=== PATIENT | female | born 1935 | race Caucasian/White ===

== ENCOUNTER 2017-09-07 09:43 | Inpatient (IN) | payer MEDICARE, MEDICAID, OTHER ==
[~2017-09-07] VITALS: Ht 161.3 cm; Wt 72.7 kg
[~2017-09-07 09:43] MED LIST: ASPI-611 PO; CARB1TAB23 PO; CELE-54 PO; CETI-1 PO; DILT180C95 PO; DIPH-186 PO; DONE10TA44 PO; DULO-31 PO; ESZO3TAB39 PO; LACT1CAP26 PO; METF500T7 PO; NITR0.4T51 SL; NORCO10T PO; POLY17PO2 PO; ROSU20TA PO; TEMA30CA PO
[2017-09-07 10:44] LABS: BASOPHILS % (AUTO) 0.6 % (0-1); EOSINOPHILS # (AUTO) 0.2 X10'3 (0-0.9); EOSINOPHILS % (AUTO) 3.9 % (0-6); HEMATOCRIT 31.9 % (35.0-45.0); HEMOGLOBIN 10.7 g/dl (12.0-16.0); LYMPHOCYTES # (AUTO) 1.6 X10'3 (1.1-4.8); LYMPHOCYTES % (AUTO) 26.8 % (21-51); MEAN CORPUSCULAR HEMOGLOBIN 29.2 PG (27.0-31.0); MEAN CORPUSCULAR HGB CONC 33.7 % (33.0-36.5); MEAN CORPUSCULAR VOLUME 86.7 FL (78-98); MEAN PLATELET VOLUME 8.7 FL (7.4-10.4); MONOCYTES # (AUTO) 0.5 X10'3 (0-0.9); MONOCYTES % (AUTO) 7.9 % (2-12); NEUTROPHILS # (AUTO) 3.7 X10'3 (1.8-7.7); NEUTROPHILS % (AUTO) 60.8 % (42-75); PLATELET COUNT 179 X10'3 (140-440); RED BLOOD COUNT 3.67 X10'6 (4.20-5.60); RED CELL DISTRIBUTION WIDTH 18.4 % (11.5-14.5); WHITE BLOOD COUNT 6.1 X10'3 (4.5-11.0)
[2017-09-07 11:09] LABS: CLARITY,URINE Clear (Clear); COLOR,URINE Yellow (Yellow); GLUCOSE, URINE Negative (Neg); KETONES,URINE Negative (Neg); LEUKOCYTE ESTERASE ,URINE Negative (Neg); NITRITES, URINE Negative (Neg); OCCULT BLOOD,URINE Negative (Neg); PH,URINE 5.5 (4.8-8.0); PROTEIN,URINE Negative (Neg)
[2017-09-07 11:10] LABS: UA COLLECTION TYPE CLN CATCH MIDSTREAM
[2017-09-07 11:23] LABS: ACETAMINOPHEN < 2.0 UG/ML (10-30); ALANINE AMINOTRANSFERASE 12 U/L (12-78); ALBUMIN/GLOBULIN RATIO 0.8 (1.1-1.5); ALKALINE PHOSPHATASE 97 IU/L (46-116); ANION GAP 8 (8-16); ASPARTATE AMINO TRANSFERASE 17 U/L (10-37); BILIRUBIN,TOTAL 0.3 MG/DL (0.1-1.0); BLOOD UREA NITROGEN 35 MG/DL (7-18); BUN/CREATININE RATIO 31.8 (6.6-38.0); CALCIUM 8.5 MG/DL (8.5-10.1); CHLORIDE 109 MMOL/L (99-107); ETHANOL < 0.010 GM/DL (0.0-0.010); GLUCOSE 127 MG/DL (70-104); MAGNESIUM 1.9 MG/DL (1.5-2.4); PHOSPHORUS 3.8 MG/DL (2.3-4.5); POTASSIUM 3.9 MMOL/L (3.5-5.1); SODIUM 141 MMOL/L (135-145); TOTAL CARBON DIOXIDE 24.5 MMOL/L (24-32); TOTAL PROTEIN 6.8 G/DL (6.4-8.2); eGFR 48 ML/MIN
[2017-09-07 11:25] LABS: URINE AMPHETAMINE SCREEN NEGATIVE (Neg); URINE BARBITUATE SCREEN NEGATIVE (Neg); URINE BENZODIAZEPINES SCREEN POSITIVE (Neg); URINE CANNABINOID SCREEN NEGATIVE (Neg); URINE COCAINE SCREEN NEGATIVE (Neg); URINE METHADONE SCREEN NEGATIVE (Neg); URINE OPIATE SCREEN POSITIVE (Neg); URINE PHENCYCLIDINE SCREEN NEGATIVE (Neg)
[2017-09-07 13:17] LABS: CREATINE KINASE 59 U/L (26-192)
[2017-09-07] MEDS ORDERED: LORazepam 2 mg/ml vial IV ONE (15:05)
[2017-09-07] MEDS ORDERED: acetaminophen 325mg tablet PO STA (16:10)
[2017-09-07] MEDS ORDERED: carbidoba-levodopa 25-100mg tablet PO STA (16:11)
[2017-09-07] MEDS ORDERED: metoprolol tartrate 1mg/ml inj IV ONE (20:05)
[2017-09-07] MEDS ORDERED: hydrALAZINE 20mg/ml inj. IV ONE (20:05)
[2017-09-07] MEDS ORDERED: normal saline 1000ml 1,000 ML IV ONE (20:25)
[2017-09-07] MEDS ORDERED: temazepam 15mg capsule PO PRN (21:00)
[2017-09-07] MEDS ORDERED: normal saline 1000ml 1,000 ML IV SCH (21:14)
[2017-09-07] MEDS ORDERED: HYDROcodone/acetaminophen 5mg/325mg tablet PO PRN (21:15)
[2017-09-07] MEDS ORDERED: ondansetron/PF 4mg/2ml inj IV PRN (21:15)
[2017-09-07] MEDS ORDERED: metoclopramide 5 mg/ml inj IV PRN (21:15)
[2017-09-07] MEDS ORDERED: dextrose 50%-water 50ml dispensing syringe IV PRN ×2 (21:15)
[2017-09-07] MEDS ORDERED: magnesium hydroxide 30ml (MOM) UD suspension PO PRN (21:15)
[2017-09-07] MEDS ORDERED: bisacodyl 10mg suppository rectal RC PRN (21:15)
[2017-09-07] MEDS ORDERED: mag hydrox/Alum hydrox/simeth 30ml oral suspension PO PRN (21:15)
[2017-09-07] MEDS ORDERED: MESSAGE TO PHARMACY PO ONE (21:15)
[2017-09-07] MEDS ORDERED: glucagon, human recombinant 1mg kit SUBCUT PRN (21:15)
[2017-09-07] MEDS ORDERED: insulin Lispro (HumaLOG) vial - multi-dose SQ SCH (21:15)
[2017-09-07] MEDS ORDERED: acetaminophen 650mg rectal suppository RC PRN (21:15)
[2017-09-07] MEDS ORDERED: HYDROmorphone 1 mg/ml syringe IV PRN ×2 (21:15)
[2017-09-07] MEDS ORDERED: acetaminophen 325mg tablet PO PRN ×2 (21:15)
[2017-09-07] MEDS ORDERED: dextrose ORAL solution 15 GM/59 ML bottle PO PRN ×2 (21:15)
[2017-09-07] MEDS ORDERED: morphine 2 MG/ML inj. syringe IV PRN ×2 (21:15)
[2017-09-07] MEDS ORDERED: diphenhydrAMINE 25mg capsule PO PRN (21:15)
[2017-09-07] MEDS ORDERED: HYDROcodone/acetaminophen 10/325mg tab PO PRN (21:15)
[2017-09-07] MEDS ORDERED: diphenhydrAMINE 50 mg/ml inj IV PRN (21:15)
[2017-09-07] MEDS ORDERED: morphine 5 MG/ML injection IV PRN ×2 (21:30)
[2017-09-07 21:50] LABS: HEMOGLOBIN A1C 5.9 % (4.5-6.2)
[2017-09-07 21:59] LABS: LIPASE 265 U/L (73-393)
[2017-09-07] MEDS: carbidoba-levodopa 25-100mg tablet PO SCH (23:36)
[2017-09-07 23:42] VITALS: BP 161/106
[2017-09-08 06:00] VITALS: BP 169/72
[2017-09-08 07:15] LABS: BASOPHILS % (AUTO) 0.4 % (0-1); EOSINOPHILS # (AUTO) 0.2 X10'3 (0-0.9); EOSINOPHILS % (AUTO) 4.1 % (0-6); HEMATOCRIT 31.8 % (35.0-45.0); HEMOGLOBIN 10.9 g/dl (12.0-16.0); LYMPHOCYTES # (AUTO) 1.5 X10'3 (1.1-4.8); LYMPHOCYTES % (AUTO) 27.6 % (21-51); MEAN CORPUSCULAR HEMOGLOBIN 29.1 PG (27.0-31.0); MEAN CORPUSCULAR HGB CONC 34.1 % (33.0-36.5); MEAN CORPUSCULAR VOLUME 85.4 FL (78-98); MEAN PLATELET VOLUME 8.9 FL (7.4-10.4); MONOCYTES # (AUTO) 0.4 X10'3 (0-0.9); MONOCYTES % (AUTO) 6.8 % (2-12); NEUTROPHILS # (AUTO) 3.2 X10'3 (1.8-7.7); NEUTROPHILS % (AUTO) 61.1 % (42-75); PLATELET COUNT 189 X10'3 (140-440); RED BLOOD COUNT 3.73 X10'6 (4.20-5.60); RED CELL DISTRIBUTION WIDTH 18.5 % (11.5-14.5); WHITE BLOOD COUNT 5.3 X10'3 (4.5-11.0)
[2017-09-08 07:27] LABS: ALANINE AMINOTRANSFERASE 15 U/L (12-78); ALBUMIN 2.8 G/DL (3.4-5.0); ALBUMIN/GLOBULIN RATIO 0.8 (1.1-1.5); ALKALINE PHOSPHATASE 100 IU/L (46-116); ANION GAP 9 (8-16); ASPARTATE AMINO TRANSFERASE 21 U/L (10-37); BILIRUBIN,TOTAL 0.2 MG/DL (0.1-1.0); BLOOD UREA NITROGEN 27 MG/DL (7-18); CALCIUM 8.6 MG/DL (8.5-10.1); CHLORIDE 112 MMOL/L (99-107); GLUCOSE 136 MG/DL (70-104); SODIUM 145 MMOL/L (135-145); TOTAL CARBON DIOXIDE 24.1 MMOL/L (24-32); TOTAL PROTEIN 6.4 G/DL (6.4-8.2); eGFR 60 ML/MIN
[2017-09-08] MEDS ORDERED: diltiazem CD 180mg cap (once-daily) PO SCH (08:00)
[2017-09-08] MEDS ORDERED: duloxetine 30mg CAPSULE.DR PO SCH (08:00)
[2017-09-08] MEDS ORDERED: aspirin 81mg tablet.DR PO SCH (08:00)
[2017-09-08] MEDS ORDERED: docusate sod 100mg capsule PO SCH (08:00)
[2017-09-08] MEDS ORDERED: heparin, porcine 5000 units/ml vial SQ SCH (08:00)
[2017-09-08] MEDS ORDERED: non-formulary drug (Aspirin (Aspir 81) 1 TABLET) PO SCH (08:00)
[2017-09-08] MEDS: carbidoba-levodopa 25-100mg tablet PO SCH (09:37)
[2017-09-08] MEDS ORDERED: FLU VACC QS2017-18 36MOS UP/PF 60 MCG/0.5 ML SYRINGE IMVAC ONE (10:00)
[2017-09-08] MEDS ORDERED: pneumococcal 23-VAL P-sac vacc 25 mcg/0.5ml vial IMVAC ONE (10:00)
[2017-09-08] MEDS ORDERED: zolpidem 5mg tablet PO SCH (21:00)
[2017-09-08] MEDS ORDERED: non-formulary drug (Rosuvastatin Calcium* (Crestor*) 20 MG) PO SCH (21:00)
[2017-09-08] MEDS ORDERED: insulin glargine (Lantus) pen - multi-dose SQ SCH (21:00)
[2017-09-08] MEDS ORDERED: atorvastatin 20mg tablet PO SCH (21:00)
[2017-09-08] MEDS ORDERED: non-formulary drug (Eszopiclone 1 TAB) PO SCH (21:00)
== END 2017-09-08 13:50 | disposition home health service (06) | DRG 917 ==
LOC: ER 09:44 → ORTHO 4S 21:14
PROVIDERS: ADMIT Family Medicine; ATTEND Internal Medicine
DX: T50.901A Poisoning by unspecified drugs, medicaments and biological substances, accidental (unintentional), initial encounter (principal); G92 Toxic encephalopathy; N17.9 Acute kidney failure, unspecified; I16.0 Hypertensive urgency; E11.65 Type 2 diabetes mellitus with hyperglycemia; F03.90 Unspecified dementia, unspecified severity, without behavioral disturbance, psychotic disturbance, mood disturbance, and anxiety; I25.10 Atherosclerotic heart disease of native coronary artery without angina pectoris; F19.10 Other psychoactive substance abuse, uncomplicated; I10 Essential (primary) hypertension; Z95.0 Presence of cardiac pacemaker; Z88.8 Allergy status to other drugs, medicaments and biological substances; Z79.82 Long term (current) use of aspirin; Z79.84 Long term (current) use of oral hypoglycemic drugs; Z79.899 Other long term (current) drug therapy; Z85.41 Personal history of malignant neoplasm of cervix uteri; Z86.73 Personal history of transient ischemic attack (TIA), and cerebral infarction without residual deficits; Z82.49 Family history of ischemic heart disease and other diseases of the circulatory system; Z82.5 Family history of asthma and other chronic lower respiratory diseases; Y92.89 Other specified places as the place of occurrence of the external cause
CPT/HCPCS: 36415; 70450; 71045; 80053; 80305; 80320; 80329; 81003; 82140; 82550; 82553; 82948; 83036; 83690; 83735; 83880; 84100; 84439; 84443; 84484; 85025; 87070; 93005; J0360; J1644; J1815; J2060; J3490; J7030

== ENCOUNTER 2018-01-04 06:00 | Day surgery (SDC) | payer MEDICARE, MEDICAID, OTHER ==
[2017-12-30 13:59] LABS: CLARITY,URINE CLOUDY (Clear); COLOR,URINE YELLOW (Yellow); GLUCOSE, URINE NEGATIVE (Neg); KETONES,URINE 15 mg/dl (Neg); LEUKOCYTE ESTERASE ,URINE SMALL (Neg); NITRITES, URINE POSITIVE (Neg); OCCULT BLOOD,URINE NEGATIVE (Neg); PH,URINE 5.5 (4.8-8.0); PROTEIN,URINE 30 mg/dl (Neg)
[2017-12-30 13:59] LABS: BASOPHILS % (AUTO) 0.3 % (0-1); EOSINOPHILS # (AUTO) 0.1 X10'3 (0-0.9); EOSINOPHILS % (AUTO) 1.4 % (0-6); LYMPHOCYTES % (AUTO) 29.1 % (21-51); MEAN CORPUSCULAR HGB CONC 33.5 % (33.0-36.5); MEAN CORPUSCULAR VOLUME 86.4 FL (78-98); MEAN PLATELET VOLUME 9.6 FL (7.4-10.4); MONOCYTES # (AUTO) 0.3 X10'3 (0-0.9); MONOCYTES % (AUTO) 4.6 % (2-12); NEUTROPHILS # (AUTO) 4.5 X10'3 (1.8-7.7); NEUTROPHILS % (AUTO) 64.6 % (42-75); PRE OP HEMATOCRIT 40.3 % (35.0-45.0); PRE OP HEMOGLOBIN 13.5 g/dL (12.0-16.0); PRE OP PLATELET COUNT 195 X10'3 (140-440); RED BLOOD COUNT 4.66 X10'6 (4.20-5.60); RED CELL DISTRIBUTION WIDTH 15.5 % (11.5-14.5)
[2017-12-30 14:05] LABS: UA COLLECTION TYPE CLN CATCH MIDSTREAM
[2017-12-30 14:06] LABS: SQUAMOUS EPITHELIAL CELL,UR MANY /LPF (FEW)
[2017-12-30 14:07] LABS: BACTERIA,URINE 2+ /HPF (Neg); RBC,URINE 0-2 /HPF (0-2); WBC,URINE 30-50 /HPF (0-4); YEAST FEW /HPF (NEGATIVE)
[2017-12-30 14:14] LABS: ALBUMIN 3.5 G/DL (3.4-5.0); ALBUMIN/GLOBULIN RATIO 0.9 (1.1-1.5); ALKALINE PHOSPHATASE 114 IU/L (46-116); BLOOD UREA NITROGEN 19 MG/DL (7-18); BUN/CREATININE RATIO 17.9 (6.6-38.0); CALCIUM 8.9 MG/DL (8.5-10.1); CHLORIDE 105 MMOL/L (99-107); CREATININE 1.06 MG/DL (0.40-0.90); PRE OP ALT 8 U/L (30-65); PRE OP ANION GAP 10 (8-16); PRE OP AST 17 U/L (10-37); PRE OP BILIRUB, TOTAL 0.6 MG/DL (0.0-1.0); PRE OP GLUCOSE 90 MG/DL (70-104); PRE OP POTASSIUM 3.7 MMOL/L (3.4-5.1); PRE OP SODIUM 139 MMOL/L (135-145); TOTAL CARBON DIOXIDE 23.9 MMOL/L (24-32); TOTAL PROTEIN 7.5 G/DL (6.4-8.2); eGFR 50 ML/MIN
[~2018-01-04] VITALS: Ht 162.6 cm; Wt 73.5 kg
[2018-01-04] VITALS (23 sets, daily range): BP systolic 116–148; BP diastolic 43–94
[~2018-01-04 06:00] MED LIST changes: +CARB1TAB44 PO; +Cefazolin 2GM/100ML NS IVPB IV ONE; +DIPH25CA46 PO; +GABA-530 PO; -LACT1CAP26 PO; +NITR100C PO; -POLY17PO2 PO; +famotidine 20mg tablet PO ONE; +ringers solution, lacted 1,000 ML IV SCH
[2018-01-04] MEDS ORDERED: LIDOcaine 1% (10mg/ml) 2ml vial ONE (06:01)
[2018-01-04] MEDS ORDERED: ringers solution, lacted 1,000 ML IV SCH (06:13)
[2018-01-04] MEDS ORDERED: ondansetron/PF 4mg/2ml inj IV PRN (06:15)
[2018-01-04] MEDS ORDERED: proCHLORperazine 10 MG/2 ml inj IV PRN (06:15)
[2018-01-04] MEDS ORDERED: meperidine/PF 25mg/ml syringe IV PRN ×3 (06:15)
[2018-01-04] MEDS ORDERED: morphine 4 MG/ML inj SYRINge IV PRN ×2 (06:15)
[2018-01-04] MEDS ORDERED: sevoflurane 250ml liquid IH ONE (08:25)
[2018-01-04] MEDS ORDERED: midazolam 2 mg/2 ml injection ONE (08:36)
[2018-01-04] MEDS ORDERED: propofol inj 20 ML IV ONE (08:36)
[2018-01-04] MEDS ORDERED: fentaNYL/PF 50MCG/1 ML 2ML syringe ONE (08:36)
[2018-01-04] MEDS ORDERED: BUPIVAcaine/PF 2.5 mg/ml (0.25%) 30ml vial IJ ONE (09:00)
[2018-01-04] MEDS ORDERED: dexamethasone sod phosphate 4mg/ml inj. ONE (09:33)
== END 2018-01-04 13:30 | disposition home or self-care (01) ==
LOC: PAS 06:00
PROVIDERS: ATTEND Surgery
DX: K64.3 Fourth degree hemorrhoids (principal); K64.4 Residual hemorrhoidal skin tags; K64.8 Other hemorrhoids; J44.9 Chronic obstructive pulmonary disease, unspecified; M19.90 Unspecified osteoarthritis, unspecified site; G20 Parkinson's disease; I25.2 Old myocardial infarction; E78.5 Hyperlipidemia, unspecified; F03.90 Unspecified dementia, unspecified severity, without behavioral disturbance, psychotic disturbance, mood disturbance, and anxiety; I12.9 Hypertensive chronic kidney disease with stage 1 through stage 4 chronic kidney disease, or unspecified chronic kidney disease; E11.22 Type 2 diabetes mellitus with diabetic chronic kidney disease; N18.3 Chronic kidney disease, stage 3 (moderate); F32.9 Major depressive disorder, single episode, unspecified; F41.9 Anxiety disorder, unspecified; G89.29 Other chronic pain; Z86.718 Personal history of other venous thrombosis and embolism; Z95.0 Presence of cardiac pacemaker; Z86.73 Personal history of transient ischemic attack (TIA), and cerebral infarction without residual deficits; Z85.41 Personal history of malignant neoplasm of cervix uteri; Z79.82 Long term (current) use of aspirin; Z79.84 Long term (current) use of oral hypoglycemic drugs; Z90.89 Acquired absence of other organs; Z90.49 Acquired absence of other specified parts of digestive tract; Z90.710 Acquired absence of both cervix and uterus; Z86.14 Personal history of Methicillin resistant Staphylococcus aureus infection; Z79.891 Long term (current) use of opiate analgesic; Z79.899 Other long term (current) drug therapy; Z98.890 Other specified postprocedural states; Z88.8 Allergy status to other drugs, medicaments and biological substances
CPT/HCPCS: 36415; 46255; 80053; 81001; 82948; 85025; A6224; A6449; J0690; J1100; J2175; J2250; J2405; J2704; J3010; J3490; J7120; 88304; A7000

== ENCOUNTER 2023-05-17 08:13 | Day surgery (SDC) | payer MEDICARE, MEDICAID, OTHER ==
[2023-05-17] VITALS (8 sets, daily range): BP systolic 122–158; BP diastolic 69–109; PULSE 102–141; RESP 16; TEMP 98; O2SAT 95–97
[~2023-05-17] VITALS: Ht 162.6 cm; Wt 76.0 kg
[~2023-05-17 08:13] MED LIST changes: +CARB-313 PO; -CARB1TAB23 PO; -Cefazolin 2GM/100ML NS IVPB IV ONE; +DILT-36 PO; -DILT180C95 PO; +DIPH-1055 PO; -DIPH25CA46 PO; -ESZO3TAB39 PO; +ESZO3TAB40 PO; +METF-900 PO; -METF500T7 PO; -ROSU20TA PO; +ROSU20TA2 PO; -famotidine 20mg tablet PO ONE; -ringers solution, lacted 1,000 ML IV SCH
[2023-05-17] MEDS ORDERED: vancomycin 1,500 MG in NS 300ml IV soln IV ONE (08:41)
[2023-05-17] MEDS ORDERED: cefazolin 2gm/D5W 100mL 100 ML IV ONE (08:41)
[2023-05-17] MEDS ORDERED: normal saline 1000ml 1,000 ML IV SCH (08:45)
[2023-05-17 09:26] LABS: BASOPHILS % (AUTO) 0.6 % (0-1); EOSINOPHILS # (AUTO) 0.1 X10'3 (0-0.9); EOSINOPHILS % (AUTO) 1.1 % (0-6); HEMATOCRIT 44.2 % (35.0-45.0); HEMOGLOBIN 14.5 g/dl (12.0-16.0); LYMPHOCYTES # (AUTO) 1.6 X10'3 (1.1-4.8); LYMPHOCYTES % (AUTO) 20.3 % (21-51); MEAN CORPUSCULAR HGB CONC 32.9 g/dL (33.0-36.5); MEAN CORPUSCULAR VOLUME 87.9 FL (78-98); MEAN PLATELET VOLUME 10.3 FL (7.4-10.4); MONOCYTES # (AUTO) 0.4 X10'3 (0-0.9); MONOCYTES % (AUTO) 5.7 % (2-12); NEUTROPHILS # (AUTO) 5.6 X10'3 (1.8-7.7); NEUTROPHILS % (AUTO) 72.3 % (42-75); PLATELET COUNT 170 X10'3 (140-440); RED BLOOD COUNT 5.02 X10'6 (4.20-5.60); RED CELL DISTRIBUTION WIDTH 15.3 % (11.5-14.5); WHITE BLOOD COUNT 7.7 X10'3 (4.5-11.0)
[2023-05-17] MEDS ORDERED: lunesta (09:29)
[2023-05-17] MEDS ORDERED: DIPH25CA83 PO (09:30)
[2023-05-17 09:41] LABS: ALBUMIN 3.5 G/DL (3.4-5.0); ANION GAP 11 (8-16); BLOOD UREA NITROGEN 22 MG/DL (7-18); BUN/CREATININE RATIO 22.4 (10.0-20.0); CALCIUM 9.2 MG/DL (8.5-10.1); CHLORIDE 105 MMOL/L (99-107); CREATININE 0.98 MG/DL (0.40-0.90); GLUCOSE 150 MG/DL (70-104); MAGNESIUM 1.7 MG/DL (1.5-2.4); POTASSIUM 3.9 MMOL/L (3.5-5.1); PROTHROMBIN TIME 10.7 SECONDS (9.0-12.0); SODIUM 141 MMOL/L (135-145); TOTAL CARBON DIOXIDE 24.9 MMOL/L (24-32); eCRCL 36 ML/MIN; eGFR 54 ML/MIN
[2023-05-17] MEDS ORDERED: LIDOCAINE 2%/EPI 1:100,000 inj. Multi-dose 20 ML VIAL ONE (12:42)
[2023-05-17] MEDS ORDERED: midazolam 1 mg/ML 2ml injection ONE ×2 (12:42→13:30)
[2023-05-17] MEDS ORDERED: vancomycin 1,000mg inj ONE (12:42)
[2023-05-17] MEDS ORDERED: fentaNYL/PF 50MCG/1 ML 2ML syringe ONE (12:42)
[2023-05-17] MEDS ORDERED: LIDOcaine 1% W/epiNEPHrine 1:100,000 20ml vial ONE (13:43)
[2023-05-17] MEDS ORDERED: normal saline 500ml IV soln 500 ML IV ONE (15:05)
[2023-05-17] MEDS ORDERED: HYDROcodone/acetaminophen 5mg/325mg tablet PO PRN ×2 (15:05)
== END 2023-05-17 17:07 | disposition home or self-care (01) ==
LOC: SSTAY O 08:13
PROVIDERS: ATTEND Internal Medicine Cardiovascular Disease
DX: Z45.010 Encounter for checking and testing of cardiac pacemaker pulse generator [battery] (principal); T82.190A Other mechanical complication of cardiac electrode, initial encounter; I10 Essential (primary) hypertension; E78.5 Hyperlipidemia, unspecified; K21.9 Gastro-esophageal reflux disease without esophagitis; F41.9 Anxiety disorder, unspecified; D64.9 Anemia, unspecified; F10.91 Alcohol use, unspecified, in remission; I48.91 Unspecified atrial fibrillation; E11.9 Type 2 diabetes mellitus without complications; Z85.41 Personal history of malignant neoplasm of cervix uteri; Z90.49 Acquired absence of other specified parts of digestive tract; Z90.710 Acquired absence of both cervix and uterus; Z98.890 Other specified postprocedural states; Z79.899 Other long term (current) drug therapy; Z79.84 Long term (current) use of oral hypoglycemic drugs
CPT/HCPCS: 33218; 33228; 36415; 71045; 80048; 82948; 83735; 85025; 85610; 93005; 99152; 99153; C1785; J2250; J3010; J3370; J3490; J7030; A4620; A6258